=== PATIENT | male | born 2000 | race Caucasian/White ===

== ENCOUNTER 2021-07-19 11:03 | Emergency (ER) | payer BC, SELFPAY ==
[~2021-07-19] VITALS: Ht 172.7 cm; Wt 69.4 kg
[2021-07-19 11:03] VITALS: BP_SYST 112
--- NOTE | 2021-07-19 11:03 | NUR ---
PT STATES COVID SYMPTOMS FOR LAST 5 DAYS, REQUESTING A TEST.
--- NOTE | 2021-07-19 11:03 | NUR ---
PT BROUGHT BACK TO OUTSIDE TRIAGE TENT AND TRIAGED. ASKING FOR A COVID TEST, PT IS UNVACCINATED.
--- NOTE | 2021-07-19 13:38 | NUR ---
YOLA Donato in tent examining patient.
--- NOTE | 2021-07-19 15:28 | NUR ---
Patient given written and verbal discharge instructions and verbalizes understanding. ER Dr. Haro discussed with patient the results and treatment provided. Patient in stable condition. ID arm band removed. Patient educated on pain management and to follow up with PMD. Pain Scale 0. Opportunity for questions provided and answered.
[2021-07-19 15:29] VITALS: BP_SYST 120
== END 2021-07-19 15:29 | disposition home or self-care (01) ==
LOC: SED 11:03
DX: B34.9 Viral infection, unspecified (principal); Z20.822 Contact with and (suspected) exposure to COVID-19
CPT/HCPCS: 36415; 86710; 99283